=== PATIENT | female | born 1995 | race American Indian/Alaskan Native ===

== ENCOUNTER 2018-12-03 14:42 | Emergency (ER) | payer OTHER ==
[2018-12-03 14:53] VITALS: BP 107/55; PULSE 89; TEMP 98; BMI 20.9
--- NOTE | 2018-12-03 15:12 | PDOC ---
History of Present Illness - General Chief Complaint: Pain, Acute Stated Complaint: PELVIC PAIN Time Seen by Provider: 12/03/18 15:12 History Source: Patient Exam Limitations: No Limitations Past History - Travel Traveled outside of the country in the last 30 days: No Close contact w/someone who was outside of country & ill: No - Past Medical History Allergies/Adverse Reactions: Allergies Allergy/AdvReac Type Severity Reaction Status Date / Time No Known Allergies Allergy Verified 12/03/18 14:49 Home Medications: Ambulatory Orders Pnv No.103/Folic/Om3s/Fish Oil [ Gummies] 1 each PO DAILY #30 tab.chew 12/03/18 CVA: No COPD: No CHF: No DVT: No - Immunization History Immunization Up to Date: Yes - Suicide/Smoking/Psychosocial Hx Smoking History: Never smoked Information on smoking cessation initiated: No Hx Alcohol Use: No Drug/Substance Use Hx: No Review of Systems - Review of Systems Able to Perform ROS?: Yes Comments:: 12/03/18 18:14 CONSTITUTIONAL: Absent: fever, chills, diaphoresis, generalized weakness, malaise, loss of appetite GASTROINTESTINAL: Absent: abdominal pain, abdominal distension, nausea, vomiting, diarrhea, constipation, melena, hematochezia GENITOURINARY: Present: R lower pelvic cramping Absent: dysuria, frequency, urgency, hesitancy , hematuria, flank pain, genital pain MUSCULOSKELETAL: Absent: myalgia, arthralgia, joint swelling SKIN: Absent: rash, itching, pallor NEUROLOGIC: Absent: headache, focal weakness or paresthesias, dizziness, unsteady gait, seizure, mental status changes, bladder or bowel incontinence PSYCHIATRIC: Absent: anxiety, depression, suicidal or homicidal ideation, hallucinations. Is the patient limited Wolof proficient: No *Physical Exam - Vital Signs Last Vital Signs Temp Pulse Resp BP Pulse Ox 98.0 F 89 17 107/55 L 99 12/03/18 14:50 12/03/18 14:50 12/03/18 14:50 12/03/18 14:50 12/03/18 14:50 - Physical Exam Comments: 12/03/18 18:13 GENERAL: Well developed, well nourished. Awake and alert. No acute distress. HEENT: Normocephalic, atraumatic. PERRLA, EOMI. No conjunctival pallor. Sclera are non- icteric. Moist mucous membranes. Oropharynx is clear. ABDOMINAL: TTP of the R and L adenexa. Soft. Non-tender. Non-distended. No rebound or guarding. No organomegaly. Normoactive bowel sounds. SKIN: Warm and dry. Normal capillary refill. No rashes. No jaundice. NEUROLOGICAL: Alert, awake, appropriate. Cranial nerves 2-12 intact. No deficits to light touch and temperature in face, upper extremities and lower extremities. No motor deficits in the in face, upper extremities and lower extremities. Normoreflexic in the upper and lower extremities. Normal speech. Toes are down- going bilaterally. Gait is normal without ataxia. Medical Decision Making - Medical Decision Making 12/03/18 18:13 The patient is a 23-year-old female with past medical history of ovarian cysts, who presents to the ER with right and left sided pelvic pain for the past 3 days. The patient states that the pain is crampy in nature and comes and goes. She is not taking any medication for her pain. Denies frequency, urgency, hematuria, nausea, vomiting and diarrhea. Patient states her last menstrual cycle was October 17. Patient is sexually active with one partner, she is not concerned for STDs at this time. A/P: and ovarian cyst On exam patient with tenderness to palpation of the right and left adnexa Given history of cysts transvaginal ultrasound be ordered Urine is negative for infection, positive for No vaginal bleeding Beta hCG obtained, over 9000 Ultrasound shows a hemorrhagic cyst on the right ovary, otherwise an intrauterine is identified at approximately 5 weeks' gestation. We'll discharge home with OB follow-up I discussed the physical exam findings, ancillary test results and final diagnoses with the patient. I answered all of the patient's questions. The patient was satisfied with the care received and felt comfortable with the discharge plan and treatment plan. The Patient agrees to follow up with the primary care physician/specialist within 24-72 hours. Return precautions were given. *DC/Admit/Observation/Transfer Diagnosis at time of Disposition: Hemorrhagic cyst Qualifiers: Weeks of gestation: less than 8 weeks Qualified Code(s): Z3A.01 - Less than 8 weeks gestation of - Discharge Dispostion Disposition: HOME Condition at time of disposition: Stable Decision to Admit order: No - Prescriptions Prescriptions: Pnv No.103/Folic/Om3s/Fish Oil [ Gummies] 1 each PO DAILY #30 tab.chew - Referrals Referrals: Dominic Diaz [Primary Care Provider] - Blanca Rodriguez DO [Staff Physician] - - Patient Instructions Printed Discharge Instructions: DI for Abdominal Pain -- Early Additional Instructions: you were evaluated for your pelvic pain today. You are approximately 5 weeks . The ultrasound shows that the fetus is in the uterus. You may take Tylenol as needed for pain Your pain is most likely coming from a cyst. Please follow-up with [facility]. A referral has been provided to you. Please take vitamins daily Return to the ER for any new or worsening symptoms including vaginal bleeding, lightheadedness, nausea, vomiting - Post Discharge Activity Forms/Work/School Notes: Back to Work, Back to School
[2018-12-03 15:53] LABS: HCG,QUALITATIVE URINE Positive
[2018-12-03 15:57] LABS: EPI CELLS 1.2 /HPF (0-5/HPF); URINE APPEARANCE CLEAR; URINE BILIRUBIN NEGATIVE (NEGATIVE); URINE CASTS 0 /lpf (0-8); URINE COLOR YELLOW; URINE GLUCOSE (UA) NEGATIVE (NEGATIVE); URINE KETONE NEGATIVE (NEGATIVE); URINE LEUK ESTERASE TRACE (NEGATIVE); URINE NITRITE NEGATIVE (NEGATIVE); URINE PROTEIN NEGATIVE (NEGATIVE); URINE RBC 2 /hpf (0-4); URINE UROBILINOGEN 0.2 mg/dL (0.2-1.0); URINE WBC 2 /hpf (0-5)
== END 2018-12-03 19:43 | disposition home or self-care (01) ==
LOC: JERFT 14:42
DX: O26.891 Other specified pregnancy related conditions, first trimester (principal); O34.81 Maternal care for other abnormalities of pelvic organs, first trimester; N83.11 Corpus luteum cyst of right ovary; Z3A.01 Less than 8 weeks gestation of pregnancy
CPT/HCPCS: 36415; 76817-TC; 81003; 84702; 84703; 87086; 99281-25

== ENCOUNTER 2021-01-20 12:19 | Inpatient (IN) | payer OTHER ==
[2021-01-20] MEDS ORDERED: OXYTOCIN 30 UNITS in 0.9% NS 30 UNIT/500 ML INFUS.BAG IVPB SCH ×2 (14:00→19:00)
[2021-01-20] MEDS ORDERED: AMPICILLIN - 2 GM in SODIUM CHLORIDE 100 ML IVPB ONE (14:30)
[2021-01-20] MEDS ORDERED: DEXTROSE 5%-LACTATED RINGERS 1,000 ML IV SCH (14:30)
[2021-01-20] MEDS ORDERED: AMPICILLIN SODIUM 2 GM VIAL ONE (15:10)
[2021-01-20 16:04] VITALS: BMI 26.5
[2021-01-20 16:04] LABS: BASO % 0.3 % (0-2.0); EOS % 0.4 % (0-4.5); HEMATOCRIT 35.6 % (32.4-45.2); HEMOGLOBIN 11.3 GM/dL (10.7-15.3); INR 1.04 (0.83-1.09); LYMPH % 18.3 % (8-40); MCH 26.7 pg (25.7-33.7); MCHC 31.7 g/dl (32.0-36.0); MEAN CELL VOLUME 84.3 fl (80-96); MEAN PLT VOLUME 8.5 fl (7.5-11.1); PLATELET COUNT 327 10^3/uL (134-434); PROTHROMBIN TIME (PATIENT) 12.8 SEC (9.7-13.0); RBC 4.22 M/mm3 (3.60-5.2); RDW 23.1 % (11.6-15.6); WHITE BLOOD COUNT 11.2 K/mm3 (4.0-10.0)
[2021-01-20 16:06] LABS: ACTIVATED PTT 23.3 SECONDS (25.2-36.5)
[2021-01-20 16:18] LABS: BLOOD UREA NITROGEN 9.2 mg/dL (7-18); CALCIUM 8.6 mg/dL (8.5-10.1)
[2021-01-20 16:22] LABS: CREATININE 0.7 mg/dL (0.55-1.3)
[2021-01-20 16:41] LABS: ANISOCYTOSIS 3+; MACROCYTOSIS 0; OVALOCYTE 1+; PLATELET ESTIMATE NORMAL
[2021-01-20 17:15] LABS: HIV INTERPRETATION NEGATIVE (NEGATIVE)
[2021-01-20] MEDS ORDERED: NALOXONE HCL 0.4 MG/ML VIAL IVPUSH PRN (17:49)
[2021-01-20] MEDS ORDERED: FENTANYL/BUPIVACAINE/NS/PF - PCEA - 50 ML DISP.SYRIN EP ONE ×2 (17:50→22:14)
[2021-01-20] MEDS ORDERED: BUPIVACAINE HCL/PF 0.25% (2.5MG/ML) 10 ML VIAL ONE (17:51)
[2021-01-20] MEDS ORDERED: FENTANYL/BUPIVACAINE/NS/PF - PCEA - 50 ML DISP.SYRIN EP SCH (18:00)
[2021-01-20] MEDS ORDERED: AMPICILLIN SODIUM 1 GM VIAL ONE ×2 (18:53→22:50)
[2021-01-20] MEDS: AMPICILLIN - 1 GM in SODIUM CHLORIDE 100 ML IVPB SCH ×2 (18:57→22:55)
[2021-01-20] MEDS ORDERED: OXYTOCIN 20 UNITS in 0.9% NS 20 UNIT/1,000 ML INFUS.BAG IV ONE (21:31)
[2021-01-20] MEDS ORDERED: OXYTOCIN 30 UNITS in 0.9% NS 30 UNIT/500 ML INFUS.BAG IVPB ONE (22:50)
[2021-01-21] MEDS ORDERED: METHYLERGONOVINE MALEATE 0.2 MG/1 ML AMP IM PRN (00:53)
[2021-01-21] MEDS ORDERED: WITCH HAZEL 50% (TUCKS) 40 PAD/JAR PAD TP PRN (00:53)
[2021-01-21] MEDS ORDERED: oxyCODONE HCL 5 MG TABLET PO PRN (00:53)
[2021-01-21] MEDS ORDERED: BISACODYL 10 MG SUPP.RECT RC PRN (00:53)
[2021-01-21] MEDS ORDERED: BENZOCAINE 28 GM HEMORRHOIDAL OINTMENT TP PRN (00:53)
[2021-01-21] MEDS ORDERED: BENZOCAINE 20% 57 GM BOTTLE TP PRN (00:53)
[2021-01-21] MEDS ORDERED: OXYTOCIN 20 UNITS in 0.9% NS 20 UNIT/1,000 ML INFUS.BAG IV SCH (01:00)
[2021-01-21] MEDS ORDERED: ACETAMINOPHEN 325 MG TABLET (FP) ONE (03:01)
[2021-01-21] MEDS: ACETAMINOPHEN 325 MG TABLET (FP) PO PRN ×2 (03:10→13:57)
[2021-01-21] MEDS: AMPICILLIN - 1 GM in SODIUM CHLORIDE 100 ML IVPB SCH (03:33)
[2021-01-21 08:47] LABS: BASO % 0.1 % (0-2.0); HEMATOCRIT 31.7 % (32.4-45.2); LYMPH % 10.9 % (8-40); MCH 26.5 pg (25.7-33.7); MCHC 31.5 g/dl (32.0-36.0); MEAN CELL VOLUME 84.1 fl (80-96); MEAN PLT VOLUME 8.5 fl (7.5-11.1); MONO % 7.1 % (3.8-10.2); NEUT % 81.9 % (42.8-82.8); PLATELET COUNT 256 10^3/uL (134-434); RBC 3.76 M/mm3 (3.60-5.2); RDW 23.1 % (11.6-15.6); WHITE BLOOD COUNT 20.1 K/mm3 (4.0-10.0)
[2021-01-21] MEDS: PRENATAL VITAMINS W/ FOLIC ACID TABLET (FP) PO SCH (09:51)
[2021-01-21] MEDS ORDERED: DIPHTH,PERTUSS(ACELL),TET 0.5 ML DISP.SYRIN IM ONE (10:00)
[2021-01-21 10:58] LABS: ANISOCYTOSIS 1+; MACROCYTOSIS 0; PLATELET ESTIMATE NORMAL
[2021-01-21] MEDS: IBUPROFEN 600 MG TABLET (FP) PO PRN (13:57)
[2021-01-22] MEDS: IBUPROFEN 600 MG TABLET (FP) PO PRN (08:01)
[2021-01-22] MEDS: ACETAMINOPHEN 325 MG TABLET (FP) PO PRN (08:03)
[2021-01-22] MEDS: PRENATAL VITAMINS W/ FOLIC ACID TABLET (FP) PO SCH (09:58)
[2021-01-22 10:02] VITALS: BP 112/76; PULSE 67; TEMP 97.8
[2021-01-22] MEDS ORDERED: SENNOSIDES/DOCUSATE COMBO (SENNA PLUS) TABLET (UD) PO PRN (22:00)
== END 2021-01-22 14:40 | disposition home or self-care (01) | DRG 560 ==
LOC: JDEL 12:19 → JLDR 13:40 → J3W 01-21 03:12
PROVIDERS: ADMIT Obstetrics & Gynecology; ATTEND Obstetrics & Gynecology
PROC: 3E033VJ Introduction of Other Hormone into Peripheral Vein, Percutaneous Approach (ICD-10-PCS; 2021-01-20)
PROC: 10E0XZZ Delivery of Products of Conception, External Approach (ICD-10-PCS; principal; 2021-01-21)
PROC: 0W8NXZZ Division of Female Perineum, External Approach (ICD-10-PCS; 2021-01-21)
DX: O70.0 First degree perineal laceration during delivery (principal); Z3A.37 37 weeks gestation of pregnancy; Z37.0 Single live birth
CPT/HCPCS: 36415; 59409; 80048; 85025; 85610; 85730; 86762; 86780; 86850; 86900; 86901; 87389; 90715; C9803; U0003; U0005

== ENCOUNTER 2024-10-21 09:53 | Inpatient (IN) | payer OTHER ==
[2024-10-21 10:44] LABS: HEMATOCRIT 30.5 % (34.1-44.9); HEMOGLOBIN 9.2 g/dL (11.2-15.7); MCHC 30.2 g/dl (32.2-35.5); MEAN CELL VOLUME 76.1 fl (79.4-94.8); MEAN PLT VOLUME 10.7 fl (9.4-12.3); PLATELET COUNT # 350 x10^3/uL (182-369)
[2024-10-21 10:46] VITALS: BMI 27.9
[2024-10-21] MEDS ORDERED: FENTANYL/BUPIVACAINE/NS/PF - PCEA - 50 ML DISP.SYRIN EP ONE (10:48)
[2024-10-21] MEDS ORDERED: NALOXONE HCL 0.4 MG/ML VIAL IVPUSH PRN (10:49)
[2024-10-21] MEDS: ELECTROLYTE-148 SOLN 500 ML IV SCH ×2 (10:50→11:54)
[2024-10-21 10:52] LABS: INR 1.11 (0.83-1.09); PROTHROMBIN TIME (PATIENT) 12.2 SEC (9.7-13.0)
[2024-10-21 10:54] LABS: ACTIVATED PTT 23.5 SECONDS (25.2-36.5)
[2024-10-21] MEDS ORDERED: FENTANYL CITRATE/PF 50 MCG/ML VIAL ONE (10:54)
[2024-10-21] MEDS: FENTANYL/BUPIVACAINE/NS/PF - PCEA - 50 ML DISP.SYRIN EP SCH (11:10)
[2024-10-21 11:19] LABS: POTASSIUM 3.9 mmol/L (3.5-5.1)
[2024-10-21 11:22] LABS: BLOOD UREA NITROGEN 8.6 mg/dL (7-18)
[2024-10-21 11:25] LABS: CREATININE 0.6 mg/dL (0.55-1.3)
[2024-10-21 11:44] LABS: SYPHILIS W/ RPR CONF NON-REACTIVE (NONREACTIVE)
[2024-10-21 12:10] LABS: HCV DIAGNOSTIC IN-HOUSE W/RFLX NON-REACTIVE (NONREACTIVE)
[2024-10-21 12:13] LABS: HIV INTERPRETATION NEGATIVE (NEGATIVE)
[2024-10-21] MEDS ORDERED: BUPIVACAINE HCL/PF 0.25% (2.5MG/ML) 10 ML VIAL ONE (12:26)
[2024-10-21] MEDS ORDERED: OXYTOCIN 30 UNITS in 0.9% NS 30 UNIT/500 ML INFUS.BAG IVPB ONE (12:46)
[2024-10-21] MEDS ORDERED: OXYTOCIN 20 UNITS in 0.9% NS 20 UNIT/1,000 ML INFUS.BAG IV ONE (12:46)
[2024-10-21] MEDS ORDERED: METHYLERGONOVINE MALEATE 0.2 MG/1 ML AMP IM PRN (13:25)
[2024-10-21] MEDS ORDERED: BISACODYL 10 MG SUPP.RECT RC PRN (13:25)
[2024-10-21] MEDS ORDERED: WITCH HAZEL 50% (TUCKS) 40 PAD/JAR PAD TP PRN (13:25)
[2024-10-21] MEDS ORDERED: oxyCODONE HCL 5 MG TABLET PO PRN (13:25)
[2024-10-21] MEDS ORDERED: BENZOCAINE 28 GM HEMORRHOIDAL OINTMENT TP PRN (13:25)
[2024-10-21] MEDS ORDERED: ACETAMINOPHEN 325 MG TABLET (FP) PO PRN (13:25)
[2024-10-21] MEDS: OXYTOCIN 20 UNITS in 0.9% NS 20 UNIT/1,000 ML INFUS.BAG IV SCH (14:00)
[2024-10-21] MEDS: IBUPROFEN 600 MG TABLET (FP) PO PRN (15:55)
[2024-10-21] MEDS: BENZOCAINE 20% 57 GM BOTTLE TP PRN (15:55)
[2024-10-22 07:21] LABS: HEMATOCRIT 28.7 % (34.1-44.9); HEMOGLOBIN 8.8 g/dL (11.2-15.7); MCHC 30.7 g/dl (32.2-35.5); MEAN CELL VOLUME 76.5 fl (79.4-94.8); MEAN PLT VOLUME 10.7 fl (9.4-12.3); PLATELET COUNT # 304 x10^3/uL (182-369); RDW 17.1 % (12.1-16.5)
[2024-10-22] MEDS: FERROUS SO4 325 MG TABLET (FP) PO SCH (09:27)
[2024-10-22] MEDS: PRENATAL VITAMINS W/ FOLIC ACID TABLET (FP) PO SCH (09:27)
[2024-10-22 20:15] VITALS: RESP 18
[2024-10-22] MEDS ORDERED: SENNOSIDES/DOCUSATE COMBO (SENNA PLUS) TABLET (UD) PO PRN (22:00)
[2024-10-23 09:14] VITALS: BP 110/78; PULSE 96; TEMP 98
== END 2024-10-23 12:10 | disposition home or self-care (01) | DRG 560 ==
LOC: JLDR 09:53 → J3W 15:15
PROVIDERS: ADMIT Obstetrics & Gynecology; ATTEND Obstetrics & Gynecology
PROC: 10E0XZZ Delivery of Products of Conception, External Approach (ICD-10-PCS; principal; 2024-10-21)
DX: O70.0 First degree perineal laceration during delivery (principal); Z3A.38 38 weeks gestation of pregnancy; Z37.0 Single live birth
CPT/HCPCS: 36415; 59409; 80048; 85025; 85610; 85730; 86780; 86803; 86850; 86900; 86901; 87389